=== PATIENT | male | born 1955 | race Caucasian/White ===

== ENCOUNTER → 2021-02-16 03:55 | Outpatient (CLI) | payer MEDICARE, SELFPAY ==
[2021-02-16 18:23] LABS: SARS-CoV-2 RNA PCR Negative
== END ==
PROVIDERS: PCP Student in an Organized Health Care Education/Training Program; Visit Provider Student in an Organized Health Care Education/Training Program
DX: R09.81 Nasal congestion (principal); R09.89 Other specified symptoms and signs involving the circulatory and respiratory systems; Z20.822 Contact with and (suspected) exposure to COVID-19
CPT/HCPCS: C9803; U0003; U0005

== ENCOUNTER 2021-07-19 09:45 | Outpatient (RCR) | payer MEDICARE, SELFPAY ==
[2021-06-22 09:50] VITALS: BP 110/50; PULSE 60; O2SAT 97
[2021-06-22 10:39] VITALS: PULSE 60
== END 2021-10-01 08:05 | disposition home or self-care (01) ==
LOC: ANHCPREHAB 09:45
PROVIDERS: PCP Student in an Organized Health Care Education/Training Program
DX: Z95.5 Presence of coronary angioplasty implant and graft (principal)
CPT/HCPCS: 93798